=== PATIENT | female | born 1940 | race Caucasian/White ===

== ENCOUNTER 2016-07-30 21:20 | Observation (INO) | payer OTHER ==
[~2016-07-30 21:20] MED LIST: traMADol 50 MG TAB PO SCH
--- NOTE | 2016-07-30 21:43 | EDPHY ---
H & P Time Seen by Provider: 07/30/16 21:42 HPI/ROS: Chief complaint. Double vision/blurry vision HPI. Patient is 75-year-old female who at 7:30 p.m. yancy was coming home with her from dinner and walking upstairs into their house when she felt out of it. It occurred just briefly. Then she felt back to normal. She went upstairs to the house and sat down to watch television and noticed that there was initially blurry and double vision with both eyes. She closed each eye independently and had double vision on the television with both eyes. Symptoms are gone now the lasted 3 minutes duration. She does have a headache. She and her agree she had no speech difficulty. She had no weakness or altered sensation to arms or legs. She otherwise felt well today but somewhat fatigued today. She has a known history of atrial fibrillation and takes aspirin as a blood thinner. No previous symptoms ROS Constitutional. no fever/chills, no weakness Eyes. Double vision ENT. no sore throat, no nasal drainage Cardiovascular. no chest pain Respiratory. no shortness of breath, no cough Abdominal. no abdominal pain, no nausea/vomiting, no diarrhea . no problems urinating MS. no calf pain/swelling, no neck/back pain, no joint pain Skin. no rash Lymph. no swollen glands Neuro. no headache, no dizziness, no difficulty walking or with speech Past Medical/Surgical History: Past medical history atrial fibrillation, sleep apnea, fibromyalgia Social History: , nonsmoker, no alcohol Smoking Status: Never smoked Physical Exam: General Appearance: Alert well-developed female mild distress vital signs are stable Eyes: Pupils equal and round no pallor or injection. ENT, Mouth: Mucous membranes are moist. Respiratory: There are no retractions, lungs are clear to auscultation. Cardiovascular: Regular rate and rhythm. Gastrointestinal: Abdomen is soft and nontender, no masses, bowel sounds normal. Neurological: Awake and alert, sensory and motor exams grossly normal. Speech is normal. Cranial nerves are normal. There is no pronator drift. Finger-to- nose and [id number] are intact bilaterally Skin: Warm and dry, no rashes. Musculoskeletal: Neck is supple nontender. Extremities symmetrical, full range of motion. Psychiatric: Patient is oriented X 3, there is no agitation. Constitutional: Initial Vital Signs Temperature (C) 36.7 C 07/30/16 21:22 Heart Rate 77 07/30/16 21:22 Respiratory Rate 16 07/30/16 21:22 Blood Pressure 154/75 H 07/30/16 21:22 O2 Sat (%) 95 07/30/16 21:22 O2 Delivery Mode Room Air Allergies/Adverse Reactions: No Known Allergies Allergy (Unverified 07/30/16 21:30) Home Medications: Medication Instructions Recorded "Stool Softener" 07/30/16 AMITRIPTYLINE HCL 07/30/16 Aspirin 81mg (*) 07/30/16 Atorvastatin Calcium 07/30/16 CO Q-10 07/30/16 Caltrate+D3 Plus Mineral Minis 07/30/16 Estriol Micronized 07/30/16 Synthroid 07/30/16 Vitamin C 07/30/16 Vitamin D3 07/30/16 traMADol 07/30/16 Medical Decision Making - Diagnostics EKG Interpretation: EKG interpreted by me shows normal sinus rhythm with first-degree AV block. Normal axis. QRS is normal there is no significant ST elevation or depression. There is no arrhythmia. The rate is 71 Imaging: One-view chest x-ray interpreted by me is normal Noncontrast head CT reviewed by me and discussed with Dr. Shafer shows atrophy but no evidence for intracranial bleeding Procedures: IV normal saline, monitor ED Course/Re-evaluation: Re-evaluation at 10:55 p.m.--patient is stable and without symptoms The patient, her and I discussed imaging lab EKG study results. We discussed treatment plan including recommendation for admission for further workup of TIA. Patient expresses understanding and agreement I consulted and discussed the case with Dr. montelongo, hospitalist, who agrees to the admission Differential Diagnosis: I am concerned the patient had a TIA. She has history of atrial fibrillation and apparent known left carotid artery stenosis and plaque. She had symptoms of double vision that lasted 3 minutes tonight have now resolved. I considered intracranial bleeding as well as CVA. She takes only aspirin as a blood thinner - Data Points Laboratory Results: Laboratory Results 07/30/16 22:20 07/30/16 22:20 07/30/16 07/30/16 07/30/16 22:20 22:20 22:20 WBC 4.62 10^3/uL 10^3/uL (3.80-9.50) RBC 4.30 10^6/uL 10^6/uL (4.18-5.33) Hgb 13.7 g/dL g/dL (12.6-16.3) Hct 40.0 % % (38.0-47.0) MCV 93.0 fL fL (81.5-99.8) MCH 31.9 pg pg (27.9-34.1) MCHC 34.3 g/dL g/dL (32.4-36.7) RDW 12.4 % % (11.5-15.2) Plt Count 177 10^3/uL 10^3/uL (150-400) MPV 10.2 fL fL (8.7-11.7) Neut % (Auto) 44.2 % % (39.3-74.2) Lymph % (Auto) 42.6 % % (15.0-45.0) [place] % (Auto) 8.4 % % (4.5-13.0) Eos % (Auto) 3.7 % % (0.6-7.6) Baso % (Auto) 0.9 % % (0.3-1.7) Nucleat RBC Rel Count 0.0 % % (0.0-0.2) Absolute Neuts (auto) 2.04 10^3/uL 10^3/uL (1.70-6.50) Absolute Lymphs (auto) 1.97 10^3/uL 10^3/uL (1.00-3.00) Absolute Monos (auto) 0.39 10^3/uL 10^3/uL (0.30-0.80) Absolute Eos (auto) 0.17 10^3/uL 10^3/uL (0.03-0.40) Absolute Basos (auto) 0.04 10^3/uL 10^3/uL (0.02-0.10) Absolute Nucleated RBC 0.00 10^3/uL 10^3/uL (0-0.01) Immature Gran % 0.2 % % (0.0-1.1) Immature Gran # 0.01 10^3/uL 10^3/uL (0.00-0.10) PT 12.9 SEC SEC (12.0-15.0) INR 0.98 (0.83-1.16) Sodium 140 mEq/L mEq/L (134-144) Potassium 3.9 mEq/L mEq/L (3.5-5.2) Chloride 104 mEq/L mEq/L (97-110) Carbon Dioxide 28 mEq/l mEq/l (22-31) Anion Gap 8 mEq/L mEq/L (8-16) BUN 21 mg/dL mg/dL (7-23) Creatinine 1.0 mg/dL mg/dL (0.6-1.0) Estimated GFR 54 Glucose 90 mg/dL mg/dL (70-100) Calcium 9.3 mg/dL mg/dL (8.5-10.4) Troponin I < 0.012 ng/mL ng/mL (0-0.034) Departure - Departure Disposition: [facility] Inpatient Acute Clinical Impression: Transient cerebral ischemia Qualifiers: Transient cerebral ischemia type: other Qualified Code(s): G45.8 - Other transient cerebral ischemic attacks and related syndromes Condition: Good Referrals: Natalia Funez PA [Primary Care Provider] - As per Instructions
--- NOTE | 2016-07-30 22:21 | CPEKG ---
Heart Rate: 71 RR Interval: 845 P-R Interval: 220 QRSD Interval: 90 QT Interval: 416 QTC Interval: 453 P [place]: 71 QRS [place]: 26 T Wave [place]: 48 EKG Severity - ABNORMAL ECG - EKG Impression: SINUS RHYTHM EKG Impression: FIRST DEGREE AV BLOCK Electronically Signed By: Antoine Martinez 30-Jul-2016 22:46:47
[2016-07-30 22:31] LABS: % IMMATURE GRANULYOCYTES 0.2 % (0.0-1.1); ABSOLUTE IMMATURE GRANULOCYTES 0.01 10^3/uL (0.00-0.10); ADD DIFF? NO; ADD MORPH? NO; ADD SCAN? NO; ATYPICAL LYMPHOCYTE FLAG 20 (0-99); FRAGMENT RBC FLAG 0 (0-99); HEMOGLOBIN 13.7 g/dL (12.6-16.3); LEFT SHIFT FLG 0 (0-99); LIPEMIA HEMOLYSIS FLAG 90 (0-99); MEAN CELL HEMOGLOBIN 31.9 pg (27.9-34.1); MEAN CELL HEMOGLOBIN CONCENTR. 34.3 g/dL (32.4-36.7); MEAN PLATELET VOLUME 10.2 fL (8.7-11.7); PLATELET CLUMPS FLAG 0 (0-99); PLATELET COUNT 177 10^3/uL (150-400); RED CELL DISTRIBUTION WIDTH 12.4 % (11.5-15.2)
[2016-07-30 22:39] LABS: INR 0.98 (0.83-1.16); PROTIME(PATIENT) 12.9 SEC (12.0-15.0)
[2016-07-30 22:41] LABS: ANION GAP 8 mEq/L (8-16); CALCIUM 9.3 mg/dL (8.5-10.4); CARBON DIOXIDE 28 mEq/l (22-31); CHLORIDE 104 mEq/L (97-110); GLOMERULAR FILTRATION RATE 54; GLUCOSE 90 mg/dL (70-100); POTASSIUM 3.9 mEq/L (3.5-5.2); SODIUM 140 mEq/L (134-144)
[2016-07-30 22:53] LABS: TROPONIN I < 0.012 ng/mL (0-0.034)
[2016-07-30] MEDS ORDERED: ACETAMINOPHEN 500 MG TAB PO PRN (23:54)
--- NOTE | 2016-07-30 23:58 | PDGENHP ---
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 Toussaint HPI: 75-year-old female presenting with acute diplopia characterized as double vision located in both eyes, occurring at rest with associated subsequent headache located on the top of her head as well as a precipitating feeling of being "Out of it". The onset of feeling unusual began at 7:30 p.m. when she was coming home from dinner with her . She walked in her home and she felt like she was "Out of it". This sensation lasted for several seconds and approximately 15 minutes later she began experiencing double vision while sitting on the couch. She reports that the duration of the double vision was approximately 3 minutes and was alleviated without any intervention. She otherwise denies any paresthesias, paresis. She reports that she had been feeling well on the day of this presentation. She does endorse feeling some fluttering sensations in her chest but she experiences these chronically and she does have a history of symptomatic atrial fibrillation and currently has an implanted linq recorder. She also reports that she does chronically experience headaches and these are commonly alleviated with Tylenol and fluids. History Information - Allergies/Home Medication List Allergies/Adverse Reactions: No Known Allergies Allergy (Unverified 07/30/16 21:30) Home Medications: "Stool Softener" 07/30/16 [Last Taken Unknown] AMITRIPTYLINE HCL 07/30/16 [Last Taken Unknown] Aspirin 81mg (*) 07/30/16 [Last Taken Unknown] Atorvastatin Calcium 07/30/16 [Last Taken Unknown] CO Q-10 07/30/16 [Last Taken Unknown] Caltrate+D3 Plus Mineral Minis 07/30/16 [Last Taken Unknown] Estriol Micronized 07/30/16 [Last Taken Unknown] Synthroid 07/30/16 [Last Taken Unknown] Vitamin C 07/30/16 [Last Taken Unknown] Vitamin D3 07/30/16 [Last Taken Unknown] traMADol 07/30/16 [Last Taken Unknown] I have personally reviewed and updated: family history, medical history, social history, surgical history - Past Medical History fibromyalgia ( symptoms include myalgias and arthralgias) Additional medical history: Chronic headaches, no overt migraine diagnosis. Atrial fibrillation with implanted linq recorder. Reportedly left carotid stenosis, last checked approximately 2-3 years ago - Surgical History Additional surgical history: left shoulder - Family History Additional family history: with recent viral illness, no family history of CVA - Social History Smoking Status: Never smoked Alcohol Use: Rarely Drug Use: None Additional social history: normally independent in her ADLs Review of Systems ROS: 10pt was reviewed & negative except for what was stated in HPI & below Neurological: Reports: headache, other ( diplopia) Physical Exam Temp Pulse Resp BP Pulse Ox 36.7 C 96 16 135/77 H 97 07/30/16 21:22 07/30/16 23:17 07/30/16 23:17 07/30/16 23:17 07/30/16 23:17 Constitutional: no apparent distress, appears nourished, not in pain Eyes: PERRL, anicteric sclera, EOMI Ears, Nose, Mouth, Throat: moist mucous membranes, hearing normal, ears appear normal, no oral mucosal ulcers Cardiovascular: regular rate and rhythym, no murmur, rub, or gallop, No irregularly irregular, No carotid bruit, No tachycardia, No edema Respiratory: no respiratory distress, no rales or rhonchi, clear to auscultation Gastrointestinal: normoactive bowel sounds, soft, non-tender abdomen, no palpable masses Genitourinary: no bladder fullness, no bladder tenderness Neurologic: AAOx3, sensation intact bilaterally, CN II-XII Intact, No weakness, No facial droop Psychiatric: interacting appropriately, not anxious, not encephalopathic, thought process linear Lab Data & Imaging Review 07/30/16 22:20 07/30/16 22:20 WBC 4.62 10^3/uL (3.80-9.50) 07/30/16 22:20 RBC 4.30 10^6/uL (4.18-5.33) 07/30/16 22:20 Hgb 13.7 g/dL (12.6-16.3) 07/30/16 22:20 Hct 40.0 % (38.0-47.0) 07/30/16 22:20 MCV 93.0 fL (81.5-99.8) 07/30/16 22:20 MCH 31.9 pg (27.9-34.1) 07/30/16 22:20 MCHC 34.3 g/dL (32.4-36.7) 07/30/16 22:20 RDW 12.4 % (11.5-15.2) 07/30/16:20 Plt Count 177 10^3/uL (150-400) 07/30/16 22:20 MPV 10.2 fL (8.7-11.7) 07/30/16 22:20 Neut % (Auto) 44.2 % (39.3-74.2) 07/30/16 22:20 Lymph % (Auto) 42.6 % (15.0-45.0) 07/30/16 22:20 [place] % (Auto) 8.4 % (4.5-13.0) 07/30/16: Eos % (Auto) 3.7 % (0.6-7.6) 07/30/16: Baso % (Auto) 0.9 % (0.3-1.7) 07/30/16: Nucleat RBC Rel Count 0.0 % (0.0-0.2) 07/30/16 22:20 Absolute Neuts (auto) 2.04 10^3/uL (1.70-6.50) 07/30/16 22:20 Absolute Lymphs (auto) 1.97 10^3/uL (1.00-3.00) 07/30/16:20 Absolute Monos (auto) 0.39 10^3/uL (0.30-0.80) 07/30/16 22:20 Absolute Eos (auto) 0.17 10^3/uL (0.03-0.40) 07/30/16:20 Absolute Basos (auto) 0.04 10^3/uL (0.02-0.10) 07/30/16:20 Absolute Nucleated RBC 0.00 10^3/uL (0-0.01) 07/30/16: Immature Gran % 0.2 % (0.0-1.1) 07/30/16:20 Immature Gran # 0.01 10^3/uL (0.00-0.10) 07/30/16: PT 12.9 SEC (12.0-15.0) 07/30/16:20 INR 0.98 (0.83-1.16) 07/30/16 22:20 Sodium 140 mEq/L (134-144) 07/30/16 22:20 Potassium 3.9 mEq/L (3.5-5.2) 07/30/16 22:20 Chloride 104 mEq/L (97-110) 07/30/16 22:20 Carbon Dioxide 28 mEq/l (22-31) 07/30/16 22:20 Anion Gap 8 mEq/L (8-16) 07/30/16 22:20 BUN 21 mg/dL (7-23) 07/30/16 22:20 Creatinine 1.0 mg/dL (0.6-1.0) 07/30/16 22:20 Estimated GFR 54 07/30/16 22:20 Glucose 90 mg/dL (70-100) 07/30/16 22:20 Calcium 9.3 mg/dL (8.5-10.4) 07/30/16 22:20 Troponin I < 0.012 ng/mL (0-0.034) 07/30/16 22:20 Visualized and Interpreted Chest x-ray results: Yes Chest X-Ray results: other ( clear, possible left lower lobe atelectasis) Visualized and Interpreted EKG results: Yes EKG Interpretation: Positive for: other ( normal sinus rhythm with first-degree AV block) Assessment & Plan Assessment: 75-year-old female presenting with acute diplopia in the setting of atrial fibrillation Plan: 1. Diplopia. Acute, new problem this provider, further workup indicated. Potential etiologies include TIA versus complex migraine - given history of left-sided carotid stenosis, get carotid ultrasounds at this time and if stenosis is present, proceed to CT angio - will get Neurology consultation to help us determine whether this is more likely to be a TIA versus complex migraine, as this determination will influence whether the patient is advised to adjust from aspirin to systemic anticoagulation in the setting of atrial fibrillation - if this is a TIA, the patient has an ABCD2 score of 2, conferring low risk, but that being said, the patient has underlying atrial fibrillation and may be at risk for further complications if immediate action is not taken - get lipid panel 2. Atrial fibrillation. Unclear whether this is considered persistent versus paroxysmal, as mentioned above, we will obtain outside records from [facility] the patient will also have her bring her down level device tomorrow so we can determine AFib burden - plan on continuing aspirin 81 mg presently, but would consider advising systemic anticoagulation moving forward - CHADS2-Vasc score of 4 (annual CVA risk 4.8%) or 6 (annual CVA risk 9.7%), depending on whether this is determined to be a TIA, and either of these values would be cause to recommend ongoing systemic anticoagulation 3. Fibromyalgia. Chronic, continue patient's home dosage of amitriptyline and tramadol 4. Headache. Chronic, continue as needed Tylenol and fluid Diet. Cardiac Prophylaxis. SCDs while on bed, pharmacologic prophylaxis if patient requires inpatient hospitalization Code. Full per patient, her is her MPOA Disposition. Anticipated discharge is 07/31/2016, pending further workup as outlined above. I have discussed patient's presentation with Dr. Antoine Martinez in the emergency department, we both agree the patient is appropriate for the E[facility].
[2016-07-31 05:59] LABS: ADD DIFF? NO; ADD MORPH? NO; ADD SCAN? NO; ATYPICAL LYMPHOCYTE FLAG 20 (0-99); FRAGMENT RBC FLAG 0 (0-99); HEMATOCRIT 36.1 % (38.0-47.0); HEMOGLOBIN 12.5 g/dL (12.6-16.3); LEFT SHIFT FLG 0 (0-99); LIPEMIA HEMOLYSIS FLAG 90 (0-99); MEAN CELL HEMOGLOBIN 31.7 pg (27.9-34.1); MEAN CELL HEMOGLOBIN CONCENTR. 34.6 g/dL (32.4-36.7); MEAN CELL VOLUME 91.6 fL (81.5-99.8); MEAN PLATELET VOLUME 9.9 fL (8.7-11.7); PLATELET CLUMPS FLAG 0 (0-99); PLATELET COUNT 145 10^3/uL (150-400); RED BLOOD CELL COUNT 3.94 10^6/uL (4.18-5.33); RED CELL DISTRIBUTION WIDTH 12.1 % (11.5-15.2)
[2016-07-31 06:29] LABS: ALANINE AMINOTRANSFERASE 26 IU/L (9-52); ALBUMIN 3.7 g/dL (3.5-5.0); ALKALINE PHOSPHATASE 55 IU/L (38-126); ANION GAP 9 mEq/L (8-16); ASPARTATE AMINOTRANSFERASE 23 IU/L (14-46); BILIRUBIN,TOTAL 0.4 mg/dL (0.1-1.4); CALCIUM 8.8 mg/dL (8.5-10.4); CARBON DIOXIDE 24 mEq/l (22-31); CHLORIDE 109 mEq/L (97-110); CHOLESTEROL 120 mg/dL (140-220); CHOLESTEROL/HDL RATIO 2.14 RATIO (1.00-4.44); CREATININE 0.8 mg/dL (0.6-1.0); GLOMERULAR FILTRATION RATE > 60; GLUCOSE 82 mg/dL (70-100); HIGH DENSITY LIPOPROTEIN 56 mg/dL (40-85); LDL/HDL RATIO 0.79 RATIO (1.00-3.22); LOW DENSITY LIPOPROTEIN 44 mg/dL (80-100); NON-HIGH DENSITY LIPOPROTEIN 64 mg/dL (90-129); POTASSIUM 4.2 mEq/L (3.5-5.2); SODIUM 142 mEq/L (134-144); TOTAL PROTEIN 6.5 g/dL (6.3-8.2); TRIGLYCERIDE 104 mg/dL (35-135); VERY LOW DENSITY LIPOPROTEINS 20 mg/dL (8-25)
--- NOTE | 2016-07-31 08:36 | HOSPPROG ---
Hospitalist Progress Note Assessment/Plan: DC today. SEE dictation Objective: Vital Signs Temp Pulse Resp BP Pulse Ox 36.8 C 72 16 114/63 92 07/31/16 08:14 07/31/16 08:14 07/31/16 08:14 07/31/16 08:14 07/31/16 08:14 Laboratory Results 07/31/16 05:40 07/31/16 05:40 PT 12.9 SEC (12.0-15.0) 07/30/16 22:20 INR 0.98 (0.83-1.16) 07/30/16 22:20 - Physical Exam Constitutional: no apparent distress Eyes: PERRL Ears, Nose, Mouth, Throat: moist mucous membranes Cardiovascular: regular rate and rhythym Respiratory: no respiratory distress Gastrointestinal: normoactive bowel sounds Genitourinary: no bladder fullness Musculoskeletal: full muscle strength Neurologic: AAOx3 ICD10 Worksheet Patient Problems: Problems Problem Status Onset Transient cerebral ischemia Acute
[2016-07-31 12:29] VITALS: BP 134/72; PULSE 70; RESP 19; TEMP 97.2; O2SAT 94
--- NOTE | 2016-07-31 12:47 | GDS ---
[f rep st] DISCHARGE SUMMARY DISCHARGE DIAGNOSES: 1. Suspected migraine. 2. Diplopia. 3. Paroxysmal atrial fibrillation. 4. Fibromyalgia. 5. Headache. CONSULTATIONS: Neurology. HISTORY OF PRESENT ILLNESS: The patient is a 75-year-old female with a history of paroxysmal atrial fibrillation, fibromyalgia, presenting with double vision in both eyes along with a headache on the top of her head. She started feeling unusual last night at 7:30 p.m. when coming home from dinner with her . She states she felt out of it. Fifteen minutes later, she developed double vision while sitting on the couch watching TV, stating all the characters had double chins, eyes, and mouths. Denies any focal weakness or slurred speech. She intermittently has fluttering sensations in her chest, but these are chronic. She has history of atrial fibrillation diagnosed 2 years ago and has had an implanted LINQ recorder since that time. HOSPITAL COURSE: 1. Diplopia: Suspect that this is secondary to complex migraine. Head CT and carotid studies were negative. Patient was evaluated by Dr. Parada with Neurology. She does have a history of paroxysmal atrial fibrillation. LINQ recorder was read today and showed no episodes. The patient is on a statin. 2. Hypothyroidism. Continue levothyroxine. 3. Atrial fibrillation: Again, previously diagnosed 2 years per patient report. She is currently on 81 mg of aspirin. LINQ recorder was evaluated today and did not show any episodes. She is followed by Dr. Toussaint. I would recommend followup with her to consider full systemic anticoagulation. 4. Fibromyalgia. Continue home medications. DISPOSITION: Patient is stable for discharge. FOLLOWUP: 1. Dr. Toussaint. 2. Determine anticoagulation plan. 3. Dr. Parada for migraines. /[id number]/MODL MTDD
--- NOTE | 2016-07-31 14:53 | GCON ---
[f rep st] CONSULTATION NEUROLOGIC CONSULTATION REFERRING PHYSICIAN: Jack Otero MD The patient is a 75-year-old woman who I am asked to see in neurologic consultation regarding episod jany of double vision yesterday. She says that a few days ago she had an episode where there were zigz ag lines in her peripheral vision, which seemed to move and fluctuate and lasted several minutes in both visual olivares and it was associated with a significant headache. Yesterday she had an episode when she was walking on the steps and says she felt slightly lightheaded or not sure exactly what wa s happening, and then continued on to function, but developed abnormal vision. She was looking at t he television with her glasses on, and there seemed to be vertical diplopia. She took off her glass es and that did not really clear, but then rested and after several minutes it fully resolved, but s he developed an 8/10 headache after this. She subsequently came to the hospital for evaluation. Juana carmichael was not having focal numbness or weakness. Apparently, her speech was not slurred. Historically, she has had some palpitations and some tachycardia, and her daughter tells me that at some point in the past she has been noted to have atrial fibrillation, although recent loop recorder has not had documentation of definite atrial fibrillation according to the x ray electronics wiring technician's comment in the interroga tion of the device. She now feels completely back to baseline. She came to the hospital yesterday and was being admitted for monitoring. It was not entirely clear what was happening, so we are look ing at all possibilities. No clear-cut alleviating or exacerbating factors for this. She has not had any recent illness. REVIEW OF SYSTEMS: Otherwise, a 10-point review of systems was completed and unremarkable except fo r that noted above. PAST MEDICAL HISTORY: She has had some fibromyalgia. She has had intermittent headaches, but never formal diagnosis of migraine. There are the issues related to heart rhythm disturbance as outlined above. History of carotid stenosis, which has been stable. SOCIAL HISTORY: Noncontributory. She does not smoke. She rarely consumes alcohol. No drug use. She lives independently with her and stays very active normally. MEDICATIONS: Stool softener, amitriptyline, aspirin, atorvastatin, Co Q10. ALLERGIES: No known allergies. PHYSICAL EXAMINATION: VITAL SIGNS: Her blood pressure is 134/72, pulse of 70, respirations 19, tem perature 36.2. GENERAL: Well developed, in no acute distress. EYES: Clear. NECK: Supple with n o bruits or masses. CARDIAC: Regular rate and rhythm. No murmur. NEUROLOGIC: She is awake, aler t, attentive with clear, fluent speech, and oriented to person, place, and time. She has good gener al fund of knowledge, as well as preservation of concentration, attention, recent and remote memory. Pupils 3 mm and reactive. Extraocular movements are intact. Normal facial sensation and strength . Hearing is preserved. Motor exam, normal muscle bulk and tone, 5/5 strength, and no abnormal mov ements. Sensation is preserved for temperature and light touch. No ataxia on [id number]. Her gait has been steady. Reflexes 1+ with no pathologic reflexes. DIAGNOSTIC STUDIES: Were completed that included carotid ultrasound and that revealed no hemodynami raeann significant stenoses. LABORATORY DATA: Her laboratory shows LDL cholesterol of 44. Normal INR. Unremarkable CBC. NIH s troke scale is 0. IMPRESSION: I believe the patient has experienced a couple of episodes of complex migraine phenomen a or migraine with brainstem aura and the visual aura a few days ago was fairly characteristic of a migraine aura. Although she does not have the classic story of long-term migraine headaches, both o f these neurologic events were followed by a rather significant headache, and I do not think she was having actual transient ischemic attacks. There is a question about episodic atrial fibrillation. When I spoke to her daughter on the phone, who is in the medical field, she said that she definitel y believes her mother was documented to have atrial fibrillation in the past. The recent loop monit ori has not shown that. She would have a Chet score of 1 without regarding this as a transient is chemic attack, therefore, being on aspirin therapy could still be reasonable. I would like her to f ollow up with Dr. Toussaint regarding ongoing risk factor management and treatment strategies were sh e to have atrial fibrillation. Given the lack of certainty for a primary ischemic event, it is also reasonable to not use the anticoagulation in my opinion. In any case, I gave her my information, a nd she will contact me. I had a good conversation with her daughter who is a former nurse and overs eer of the stroke program and other projects at our hospital. I also spoke with the patient's ag nd, and he is very comfortable with the situation, as well. She will let me know if anything were t o change. For now, I do not recommend any other medications to be added or any other medications in general. /[id number]/MODL
[2016-07-31] MEDS ORDERED: AMITRIPTYLINE HCL 10 MG TAB PO SCH (21:00)
== END 2016-07-31 12:35 | disposition home or self-care (01) ==
LOC: F1N 23:25
PROVIDERS: ADMIT Internal Medicine; ATTEND Internal Medicine
DX: R51 Headache (principal); H53.2 Diplopia; I48.0 Paroxysmal atrial fibrillation; M79.7 Fibromyalgia; E03.9 Hypothyroidism, unspecified; Z79.82 Long term (current) use of aspirin
CPT/HCPCS: 70450; 71010; 93005; 93880; G0378

== ENCOUNTER → 2016-08-18 | Outpatient (CLI) | payer OTHER | LOC: FIMAGING 10:19 | DX: Z12.31 Encounter for screening mammogram for malignant neoplasm of breast (principal) | CPT/HCPCS: G0202 ==

== ENCOUNTER 2016-12-30 08:16 | Day surgery (SDC) | payer OTHER ==
[2016-12-30] MEDS ORDERED: LIDOCAINE 1% 300 MG/30 ML SDV SC ONE (08:23)
[2016-12-30] MEDS ORDERED: LIDOCAINE 1% 300 MG/30 ML SDV ONE (09:16)
--- NOTE | 2016-12-30 09:35 | PDHPUP ---
History & Physical Update H&P update statement: This history and physical update is based on an assessment of the patient which was completed after admission or registration (within 24 hours), but prior to the surgery/procedure. H&P update: H&P reviewed & patient examined, no change in patient's condition since H&P completed
--- NOTE | 2016-12-30 09:36 | PDPROPOC ---
Sedation Plan of Care Sedation Plan of Care: vital signs stable, mental status noted, patient educated of risks, benefits, alternatives, patient can tolerate sedation ASA Classification: ASA 1 Mallampati Score: Class 1
--- NOTE | 2016-12-30 09:48 | PDCTREPORT ---
Cardiothoracic Procedure Rpt Cardiothoracic Procedure Report: Procedure: Loop removal. Indication: Device at end of life with no events. After informed consent was obtained, the patient was brought to the collaborative teacher. Loop site was sterilely prepped and draped. it was infiltrated with 1% Xylocaine. A stab incision was made. Using blunt dissection the device was removed. The pocket was flushed. The skin was closed with two olivia. The patient was taken to recovery. Complications: None EBL: None Patient Problems: Problems Problem Status Onset Transient cerebral ischemia Acute
== END 2016-12-30 10:19 | disposition home or self-care (01) ==
LOC: FCATH 08:16
PROVIDERS: ATTEND Internal Medicine Interventional Cardiology
PROC: 0JPT02Z Removal of Monitoring Device from Trunk Subcutaneous Tissue and Fascia, Open Approach (ICD-10-PCS; principal; 2016-12-30)
DX: Z45.09 Encounter for adjustment and management of other cardiac device (principal); I48.0 Paroxysmal atrial fibrillation; E78.5 Hyperlipidemia, unspecified; E03.9 Hypothyroidism, unspecified; N39.3 Stress incontinence (female) (male); M79.7 Fibromyalgia

== ENCOUNTER → 2017-08-24 | Outpatient (CLI) | payer OTHER | LOC: FIMAGING 10:30 | PROVIDERS: ATTEND Internal Medicine | DX: Z12.31 Encounter for screening mammogram for malignant neoplasm of breast (principal) ==

== ENCOUNTER 2018-07-05 10:33 | Day surgery (SDC) | payer OTHER | END 2018-07-05 14:40 | disposition home or self-care (01) | LOC: FSGY 10:33 ==